=== PATIENT | male | born 1945 ===

== ENCOUNTER → 2018-04-05 | Outpatient (CLI) | payer OTHER ==
[~2018-04-05] MED LIST: ASA81 MG; ATROVENT 00.5 MG/2.5 IH; CELEBREX200MG PO; GILTUSS TR TAB1 EACH PO; GLIPIZIDE5 MG; HYDROCHLOROTH12.5 MG; LEVOTHROID75 MCG; LISINOPRIL10 MG; METFORMIN HCL1000 MG; NORFLEX100MG PO; OMEPRAZOLE20 MG; SYNTHROID50 MCG; TERAZOSIN HCL5 MG; ZITHROMAX TRI-500 MG PO; ZOCOR80 MG; ZYRTEC10 MG PO
== END | disposition home or self-care (01) ==
LOC: RAD 10:12
DX: M54.5 Low back pain (principal)

== ENCOUNTER 2020-12-10 07:19 | Outpatient (CLI) | payer OTHER ==
[~2020-12-10 07:19] MED LIST changes: +DICLOFENAC POTA50 MG PO; +SKELAXIN800 MG PO
== END 2020-12-10 07:23 | disposition home or self-care (01) ==
LOC: LAB 07:19
PROVIDERS: ATTEND Physical Medicine & Rehabilitation
DX: R05 Cough (principal); R50.9 Fever, unspecified; R06.02 Shortness of breath; J12.82 Pneumonia due to coronavirus disease 2019; M35.81 Multisystem inflammatory syndrome; M35.89 Other specified systemic involvement of connective tissue; Z03.818 Encounter for observation for suspected exposure to other biological agents ruled out; Z20.822 Contact with and (suspected) exposure to COVID-19; Z11.52 Encounter for screening for COVID-19

== ENCOUNTER 2021-02-10 13:04 | Emergency (ER) | payer OTHER ==
[~2021-02-10] VITALS: Ht 182.9 cm; Wt 88.0 kg
== END 2021-02-10 17:10 | disposition home or self-care (01) ==
LOC: ER 13:04
DX: I16.1 Hypertensive emergency (principal); I10 Essential (primary) hypertension